=== PATIENT | male | born 1985 | race Caucasian/White ===

== ENCOUNTER 2016-12-16 15:31 | Inpatient (IN) | payer SELFPAY ==
[~2016-12-16] VITALS: Ht 185.4 cm; Wt 81.4 kg
[~2016-12-16 15:31] MED LIST: CEPH500C3 PO; LORTA5 PO
[2016-12-16 15:34] VITALS: BP 118/62; PULSE 76; RESP 16; TEMP 97.8; O2SAT 99
[2016-12-16] MEDS ORDERED: NAPR500T PO (15:52)
[2016-12-16] MEDS ORDERED: BACT800T5 PO (15:52)
[2016-12-16] MEDS ORDERED: CLIN150 PO (15:52)
[2016-12-16 16:00] VITALS: BP 116/75; PULSE 61; RESP 18; O2SAT 98
[2016-12-16] MEDS ORDERED: SODIUM CHLOR 0.9% 1000 ML INJ 1,000 ML IV SCH (16:30)
[2016-12-16] MEDS ORDERED: VANCOMYCIN INJ 1,000 MG in SODIUM CHLOR 0.9% 250 ML INJ 250 ML IV ONE (16:30)
[2016-12-16] MEDS ORDERED: MORPHINE SULFATE 4 MG/ML INJ IV PUSH ONE (16:45)
[2016-12-16] MEDS ORDERED: ONDANSETRON HCL 4 MG/2 ML VIAL IV PUSH ONE (16:45)
--- NOTE | 2016-12-16 16:47 | PD ---
HPI Chief Complaint: Skin Problem Time Seen by Provider: 16:05 Travel History International Travel<30 days: No Contact w/Intl Traveler<30days: No Traveled to known affect area: No History of Present Illness HPI 30-year-old male playing the pain swelling of the right hand, right arm and regular. Patient states that he started having infected lesion on the right fifth finger about a week and half ago. Patient was seen at [facility] in [facility] and given prescription for clindamycin and Bactrim DS. Patient states that has increased in redness swelling of the right hand with extension to the right forearm since then. Patient started having painful glands on the right axilla area for the past several days. Patient denies any fever chills. Patient denies any chest pain or shortness of breath. Patient is up-to-date with TD booster. PFSH Past Medical History Medical History: Denies Significant Hx Blood Disorders: No Cardiovascular Problems: No Diminished Hearing: No Gastrointestinal Disorders: No Genitourinary: No Immune Disorder: No Implanted Vascular Access Dvce: No Musculoskeletal: No Neurologic: No Psychiatric: No Reproductive: No Respiratory: No Thyroid Disease: No Tetanus Vaccination: Never Vaccinated Past Surgical History Abdominal Surgery: No Cardiac Surgery: No Neurologic Surgery: No Thoracic Surgery: No Other Surgery: No Social History Alcohol Use: Yes (occ) Tobacco Use: Yes (1 PPD) Substance Use: Yes (lortab on occ) Allergies-Medications (Allergen,Severity, Reaction): Coded Allergies: No Known Allergies (Verified , 12/16/16) Reported Meds & Prescriptions Reported Meds & Active Scripts Active Reported Bactrim DS (Sulfamethoxazole-Trimethoprim) 800-160 Mg Tab 1 Tab PO BID Naproxen 500 Mg Tab 500 Mg PO BID Cleocin (Clindamycin HCl) 150 Mg Cap 300 Mg PO BID Review of Systems General / Constitutional: No: Fever Eyes: No: Visual changes HENT: No: Headaches Cardiovascular: No: Chest Pain or Discomfort Respiratory: No: Shortness of Breath Gastrointestinal: No: Abdominal Pain Genitourinary: No: Dysuria Musculoskeletal: Positive: Pain Skin: No Rash Neurologic: No: Weakness Psychiatric: No: Depression Endocrine: No: Polydipsia Hematologic/Lymphatic: No: Easy Bruising Physical Exam Narrative GENERAL: Well-nourished, well-developed patient. SKIN: Warm and dry. HEAD: Normocephalic. EYES: No scleral icterus. No injection or drainage. NECK: Supple, trachea midline. No JVD or lymphadenopathy. CARDIOVASCULAR: Regular rate and rhythm without murmurs, gallops, or rubs. RESPIRATORY: Breath sounds equal bilaterally. No accessory muscle use. GASTROINTESTINAL: Abdomen soft, non-tender, nondistended. MUSCULOSKELETAL: No cyanosis, or edema. BACK: Nontender without obvious deformity. No CVA tenderness. Patient has redness swelling tenderness right fifth finger with direct extended to the ulnar aspect of the right hand to the distal right forearm. Patient has an ulcer lesion dorsal aspect of proximal and middle phalange right fifth finger. Patient has right axilla lymphadenopathy. Data Data Last Documented VS Vital Signs Date Time Temp Pulse Resp B/P Pulse Ox O2 Delivery O2 Flow Rate FiO2 12/16/16 16:00 61 18 116/75 98 Room Air 12/16/16 15:34 97.8 Orders Complete Blood Count With Diff (12/16/16 16:29) Basic Metabolic Panel (Bmp) (12/16/16 16:29) Blood Culture (12/16/16 16:29) Iv Access Insert/Monitor (12/16/16 16:29) Ecg Monitoring (12/16/16 16:29) Oximetry (12/16/16 16:29) Finger (Nio5qrc) (12/16/16 16:29) Sodium Chlor 0.9% 1000 Ml Inj (Ns 1000 M (12/16/16 16:30) Vancomycin Inj (Vancomycin Inj) (12/16/16 16:30) Morphine Inj (Morphine Inj) (12/16/16 16:45) Ondansetron Inj (Zofran Inj) (12/16/16 16:45) Consult Hand Surgery (12/16/16 ) Labs Laboratory Tests Test 12/16/16 16:55 White Blood Count 9.2 TH/MM3 Red Blood Count 4.22 MIL/MM3 Hemoglobin 12.6 GM/DL Hematocrit 36.4 % Mean Corpuscular Volume 86.2 FL Mean Corpuscular Hemoglobin 29.9 PG Mean Corpuscular Hemoglobin 34.7 % Concent Red Cell Distribution Width 13.1 % Platelet Count 144 TH/MM3 Mean Platelet Volume 7.7 FL Neutrophils (%) (Auto) 74.4 % Lymphocytes (%) (Auto) 13.1 % Monocytes (%) (Auto) 10.3 % Eosinophils (%) (Auto) 1.9 % Basophils (%) (Auto) 0.3 % Neutrophils # (Auto) 6.8 TH/MM3 Lymphocytes # (Auto) 1.2 TH/MM3 Monocytes # (Auto) 0.9 TH/MM3 Eosinophils # (Auto) 0.2 TH/MM3 Basophils # (Auto) 0.0 TH/MM3 CBC Comment DIFF FINAL Differential Comment MDM Medical Decision Making Medical Screen Exam Complete: Yes Emergency Medical Condition: Yes Differential Diagnosis Differential diagnosis including cellulitis, abscess, lymphangitis, lymphadenitis Narrative Course 30-year-old male with redness swelling tenderness right fifth finger right hand and right forearm and right axilla lymphadenopathy. Normal saline solution 1 25 cc an hour. Morphine 2 mg IV. Zofran 4 milligram IV. Vancomycin 1 g IV. I spoke with Dr. Pena, hand surgeon medical liaison. Will see patient this evening. Diagnosis Primary Impression: Abscess of finger of right hand Additional Impression: Cellulitis of right hand Admitting Information Admitting Physician Requests: Admit Brian Schmidt MD Dec 16, 2016 16:47
[2016-12-16 17:09] LABS: AUTOMATED NEUTROPHIL # 6.8 TH/MM3 (1.8-7.7); BASOPHIL % 0.3 % (0.0-2.0); EOSINOPHIL # 0.2 TH/MM3 (0-0.4); EOSINOPHIL % 1.9 % (0.0-4.0); HEMATOCRIT 36.4 % (39.0-51.0); HEMO FLAGS DIFF FINAL; LYMPH % 13.1 % (9.0-44.0); LYMPHOCYTE # 1.2 TH/MM3 (1.0-4.8); MEAN CELL VOLUME 86.2 FL (80.0-100.0); MEAN CORPUSCULAR HEMOGLOBIN 29.9 PG (27.0-34.0); MEAN CORPUSCULAR HGB CONC 34.7 % (32.0-36.0); MONO % 10.3 % (0.0-8.0); NEUT % 74.4 % (16.0-70.0); PLATELET COUNT 144 TH/MM3 (150-450); RED BLOOD COUNT 4.22 MIL/MM3 (4.50-5.90); RED CELL DISTRIBUTION WIDTH 13.1 % (11.6-17.2); WHITE BLOOD COUNT 9.2 TH/MM3 (4.0-11.0)
--- NOTE | 2016-12-16 17:09 | RADRPT ---
EXAM DATE/TIME: 12/16/2016 16:51 [facility] COMPARISON: No previous studies available for comparison. INDICATIONS : Severe fifth digit pain on the right hand. Unknown trauma. MEDICAL HISTORY : Smoker. SURGICAL HISTORY : None. ENCOUNTER: Initial ACUITY: 1 week PAIN SCORE: 10/10 LOCATION: Right middle fifth digit. FINDINGS: Examination of the fifth digit of the right hand demonstrates no evidence of fracture or dislocation. No radiopaque foreign bodies are seen. Diffuse soft tissue swelling of the. CONCLUSION: Soft tissue swelling without fracture. Thien Jameson MD on December 16, 2016 at 17:07 Board Certified Radiologist. This report was verified electronically.
[2016-12-16] MEDS ORDERED: SODIUM CHLOR 0.45% 1000 ML INJ 1,000 ML IV SCH (17:18)
[2016-12-16 17:28] LABS: BICARBONATE 25.5 MEQ/L (21.0-32.0); POTASSIUM 4.3 MEQ/L (3.5-5.1)
[2016-12-16] MEDS ORDERED: ONDANSETRON HCL 4 MG/2 ML VIAL IVP PRN (17:30)
[2016-12-16] MEDS ORDERED: ACETAMINOPHEN 325 MG TAB PO PRN (17:30)
[2016-12-16] MEDS ORDERED: ACETAMINOPHEN/HYDROcodone 325 MG/5 MG TAB PO PRN (17:30)
[2016-12-16 17:45] VITALS: O2SAT 98
[2016-12-16 17:47] VITALS: BP 108/58; PULSE 57; RESP 20; O2SAT 100
--- NOTE | 2016-12-16 19:14 | HHI.HP ---
[facility] [place] [facility] No Primary Care Physician Admission Diagnosis right fifth finger abscess and cellulitis Diagnoses: Chief Complaint: Left hand and arm tenderness swelling and redness Travel History International Travel<30 Days: No Contact w/Intl Traveler <30 Da: No Traveled to Known Affected Are: No History of Present Illness 30 years old male who climbed trees who came to ED complaining of worsening right hand and arm erythema and swelling and pain in the right fifth finger, patient went to [facility] in [facility] and was given prescription for clindamycin and Bactrim DS but it didn't help. The swelling continued to increase along with the tenderness patient start feeling lymph node in his right armpit and in his antecubital area. Patient not sure if he got insect right in his hand, but he reported being poked with pineapple leafs that is hard in the antecubital area. Patient reported extreme pain 12 out of 10 in his words improved to 9 out of 10 after his given pain medication in ED, he denied fever or chills chest pain or short of breath abdominal pain diarrhea constipation. He is up-to-date on TD booster Review of Systems All 10 systems reviewed and was positive for what is mentioned in history of present illness otherwise negative Past Family Social History Past Medical History Denied any previous past medical history Past Surgical History No previous surgeries Allergies: Coded Allergies: No Known Allergies (Verified , 12/16/16) Family History No significant medical problem runs in his family mother father or siblings Social History He does smoke since the age of 13 , 1 pack per day, he is the marijuana but he haven't done that in a long time, occasional alcohol use Physical Exam Vital Signs Vital Signs Date Time Temp Pulse Resp B/P Pulse Ox O2 Delivery O2 Flow Rate FiO2 12/16/16 17:47 57 20 108/58 100 Room Air 12/16/16 17:45 98 Room Air 12/16/16 16:00 61 18 116/75 98 Room Air 12/16/16 15:34 97.8 76 16 118/62 99 Physical Exam GENERAL: This is a well-nourished, well-developed patient, in no apparent distress. SKIN: Significant erythema and swelling with tenderness in the right fifth finger with also induration and tenderness in the right forearm positive lymph node in the antecubital area and in the right right axilla HEAD: Atraumatic. Normocephalic. No temporal or scalp tenderness. EYES: Pupils equal round and reactive. Extraocular motions intact. No scleral icterus. No injection or drainage. ENT: Nose without bleeding, purulent drainage or septal hematoma. Throat without erythema, tonsillar hypertrophy or exudate. Uvula midline. Airway patent. NECK: Trachea midline. No JVD or lymphadenopathy. Supple, nontender, no meningeal signs. CARDIOVASCULAR: Regular rate and rhythm without murmurs, gallops, or rubs. RESPIRATORY: Clear to auscultation. Breath sounds equal bilaterally. No wheezes , rales, or rhonchi. GASTROINTESTINAL: Abdomen soft, non-tender, nondistended. No hepato-splenomegaly , or palpable masses. No guarding. MUSCULOSKELETAL: Extremities without clubbing, cyanosis, or edema. No joint tenderness, effusion, or edema noted. No calf tenderness. Negative Homans sign bilaterally., Right upper extremity as prescribed above NEUROLOGICAL: Awake and alert. Cranial nerves II through XII intact. Motor and sensory grossly within normal limits. Five out of 5 muscle strength in all muscle groups. Normal speech. Laboratory Laboratory Tests Test 12/16/16 16:55 White Blood Count 9.2 Red Blood Count 4.22 Hemoglobin 12.6 Hematocrit 36.4 Mean Corpuscular Volume 86.2 Mean Corpuscular Hemoglobin 29.9 Mean Corpuscular Hemoglobin 34.7 Concent Red Cell Distribution Width 13.1 Platelet Count 144 Mean Platelet Volume 7.7 Neutrophils (%) (Auto) 74.4 Lymphocytes (%) (Auto) 13.1 Monocytes (%) (Auto) 10.3 Eosinophils (%) (Auto) 1.9 Basophils (%) (Auto) 0.3 Neutrophils # (Auto) 6.8 Lymphocytes # (Auto) 1.2 Monocytes # (Auto) 0.9 Eosinophils # (Auto) 0.2 Basophils # (Auto) 0.0 CBC Comment DIFF FINAL Differential Comment Sodium Level 139 Potassium Level 4.3 Chloride Level 107 Carbon Dioxide Level 25.5 Anion Gap 7 Blood Urea Nitrogen 14 Creatinine 0.98 Estimat Glomerular Filtration 89 Rate Random Glucose 94 Calcium Level 8.5 Date/Time Procedure Status Source Growth 12/16/16 16:55 Aerobic Blood Culture Received Blood Peripheral Pending 12/16/16 16:55 Anaerobic Blood Culture Received Blood Peripheral Pending Result Diagram: 12/16/16 1655 12/16/16 1655 Imaging Last Impressions Finger X-Ray 12/16/16 1629 Signed Impressions: Service Date/Time: Friday, December 16, 2016 16:51 - CONCLUSION: Soft tissue swelling without fracture. 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/ abscess extended to the right forearm antecubital area and positive lymph node in the right axilla along with severe pain, failed outpatient therapy with clindamycin and Bactrimpo, We'll admit patient for iv vancomycin, central blood culture, CBC BMP, pain medication with [place] prn, morphine for breakthrough, he was given morphine in ED Consult hand surgery, he will see patient this evening possible OR either tonight or tomorrow for I&D Consider ID consultation if needed Adjust antibiotics according to cultures DVT prophylaxis with ambulation Discussed Condition With Patient in a physician Physician Certification 2 Midnight Certification Type: Admission for Inpatient Services Order for Inpatient Services The services are ordered in accordance with Medicare regulations or non- Medicare payer requirements, as applicable. In the case of services not specified as inpatient-only, they are appropriately provided as inpatient services in accordance with the 2-midnight benchmark. Estimated LOS (days): 2 days is the estimated time the patient will need to remain in the hospital, assuming treatment plan goals are met and no additional complications. Post-Hospital Plan: Home Tobias Wong MD Dec 16, 2016 19:14
[2016-12-16] MEDS: MORPHINE SULFATE 4 MG/ML INJ IV PRN ×2 (19:37→23:25)
[2016-12-16] MEDS: LACTATED RINGER'S 1000 ML INJ 1,000 ML IV SCH ×2 (19:37→23:00)
--- NOTE | 2016-12-16 21:02 | MB ---
cc: ILANA VARELA III, M.D. DATE OF CONSULTATION: 12/16/2016 REASON FOR CONSULTATION: HISTORY OF PRESENT ILLNESS: The patient is a 30-year-old right hand dominant male who has developed an infection in his right fifth finger about a week ago. Three days ago he went to another hospital and was given clindamycin and Bactrim to take by mouth but it became worse. He went and had an IV dose of vancomycin there last night. He presents to the emergency room here today with a significant infection as well as lymphangitis and epitrochlear and axillary adenopathy of the right arm. PAST MEDICAL HISTORY Denied. PAST SURGICAL HISTORY Stitches only but no operation. SOCIAL HISTORY The patient smokes one pack per day. Occasional alcohol use. ALLERGIES NO KNOWN DRUG ALLERGIES. MEDICATIONS Bactrim and clindamycin. FAMILY HISTORY: Noncontributory to this injury or hospitalization. REVIEW OF SYSTEMS The patient is not complaining of any headaches, blurry or double vision. He is not complaining of any coughing, wheezing, shortness of breath. He is not complaining of any chest pain or palpitations. He is not complaining of any nausea, vomiting or abdominal pain. He is not complaining of any spine, neck or back pain. He is not complaining of any skin lesions, rashes, eruptions on the skin with the exception of his right arm. He is not complaining of any night sweats, fevers or chills. He is not complaining of any anxiety, depression or suicidal ideation. He is not complaining of any polyphagia, polydipsia. X-RAYS: X-rays of the right finger performed in the hospital today revealed no fractures, foreign body or dislocations but do reveal soft tissue swelling. PHYSICAL EXAMINATION: He is well-developed, well-nourished in no apparent distress, resting comfortably in his bed. VITAL SIGNS: Temperature is 97.8, heart rate 57, respiratory rate 20, blood pressure 108/58, pulse oximetry is 100% on room air. LABORATORY STUDIES: Reveal a white blood cell count 9.2 thousand, H&H 12.6 and 36.4, platelet count of 144,000. Chemistries: All within normal limits. BUN and creatinine is 14 and 0.98. He is well-nourished, comfortable in his bed, holding his right hand up in the air. The right fifth finger has an obvious large cellulitic area with an abscess and central necrotic area on the dorsal aspect over the proximal phalanx. He is neurovascularly intact throughout. Capillary refill is less than 2 seconds in all fingertips. There is suggestion of lymphangitic streaking across his wrist. He does have palpable epitrochlear lymph nodes that are tender. No palpable axillary lymph nodes. He is awake, alert and oriented x3. He is very pleasant. IMPRESSION Right fifth finger infection with abscess, cellulitis and adenopathy. PLAN: The plan is to go to the operating room tonight for incision and drainage. The patient will then be admitted for IV antibiotics, dressing changes and strict elevation of his hand. He understands and agrees. We have discussed this with the patient and his mother and they request that we proceed. MD LYNETTE Wilhelm III/HEAVEN /7:08 PM /8:51 PM
[2016-12-16] MEDS ORDERED: LIDOCAINE HCL 2% 20 ML VIAL INFIL STA (21:21)
[2016-12-16] MEDS: ACETAMINOPHEN/HYDROcodone 325 MG/7.5 MG TAB PO PRN (21:27)
[2016-12-16] MEDS ORDERED: MORPHINE SULFATE 8 MG/ML INJ IV PUSH ONE (21:45)
--- NOTE | 2016-12-16 21:56 | HHI.PR ---
Immediate Post Op Note Procedure Date: Dec 16, 2016 Pre Op Diagnosis: (1) Abscess of finger of right hand (2) Cellulitis of right hand Post Op Diagnosis: Surgeon: Giuliano Pena III Inspector Final Assembly Conveyor Line(s): 0 Procedure: incision and drainage of right 5th finger Specimen(s) removed: culture drainage right 5th finger Anesthesia: Local Drains: None Patient to: Other (in hospital room) Patient Condition: Good Giuliano Pena III, MD Dec 16, 2016 21:56
[2016-12-16] MEDS ORDERED: Vancomycin Consult Pharmacy 1 EA OTHER SCH (23:00)
[2016-12-16] MEDS: CIPROFLOXACIN 400 MG PREMIX 200 ML IV SCH (23:21)
[2016-12-17] VITALS: BP 126/80; PULSE 94; RESP 20; TEMP 98.8; O2SAT 98
[2016-12-17] MEDS: VANCOMYCIN 1,500 MG/NS 500 ML IV SCH ×6 (00:41→22:41)
[2016-12-17] MEDS: NICOTINE 21 MG/24 HR PATCH TD SCH ×2 (00:41→08:59)
[2016-12-17] MEDS: ACETAMINOPHEN/HYDROcodone 325 MG/7.5 MG TAB PO PRN ×6 (01:51→22:41)
[2016-12-17] MEDS: LACTATED RINGER'S 1000 ML INJ 1,000 ML IV SCH ×6 (03:00→22:42)
[2016-12-17] MEDS: MORPHINE SULFATE 4 MG/ML INJ IV PRN ×6 (03:01→23:42)
[2016-12-17 06:07] LABS: AUTOMATED NEUTROPHIL # 6.7 TH/MM3 (1.8-7.7); BASOPHIL % 0.3 % (0.0-2.0); EOSINOPHIL # 0.2 TH/MM3 (0-0.4); EOSINOPHIL % 1.9 % (0.0-4.0); HEMATOCRIT 33.8 % (39.0-51.0); HEMO FLAGS DIFF FINAL; LYMPH % 13.8 % (9.0-44.0); LYMPHOCYTE # 1.3 TH/MM3 (1.0-4.8); MEAN CORPUSCULAR HEMOGLOBIN 30.3 PG (27.0-34.0); MEAN CORPUSCULAR HGB CONC 35.3 % (32.0-36.0); PLATELET COUNT 134 TH/MM3 (150-450); RED BLOOD COUNT 3.93 MIL/MM3 (4.50-5.90); RED CELL DISTRIBUTION WIDTH 13.3 % (11.6-17.2); WHITE BLOOD COUNT 9.2 TH/MM3 (4.0-11.0)
[2016-12-17 06:32] LABS: BICARBONATE 25.5 MEQ/L (21.0-32.0)
[2016-12-17 08:00] VITALS: BP 99/52; PULSE 67; RESP 18; TEMP 98; O2SAT 98
[2016-12-17] MEDS ORDERED: MORPHINE SULFATE 4 MG/ML INJ IV PUSH ONE (08:00)
--- NOTE | 2016-12-17 08:26 | MP ---
cc: GIULIANO PENA III, M.D. DATE OF SURGERY 12/16/2016 PROCEDURE Right fifth finger incision and drainage. SURGEON Giuliano Pena III, MD PROCEDURE The patient was made comfortable in his bed in his hospital room with his mother in the room as well as the nurse. After the correct site and side of the surgery were verified by members of each team in the room including the patient and after adequate preoperative time-out was performed, the right hand was prepped and draped in the traditional sterile fashion. 2% plain lidocaine was used to obtain local anesthesia. A longitudinal incision was made overlying the most fluctuant portion of the finger in a longitudinal fashion dorsally, 2 cm in length. An eruption of pus was obtained and this was sampled and passed off the field as a specimen. The wound was then probed and found to be 2 cm in length and did not leave the finger. There were no other loculations. There was no necrotic tissue on the inside of the wound. It was thoroughly cleansed and then packed using 1/4-inch Iodoform packing. Capillary refill was less than 2 seconds and to the tip of the finger the entire time. A bulky, soft sterile dressing was applied. The patient tolerated the procedure well. MD LYNETTE Wilhelm III/RAJEEV /10:37 PM /8:11 AM
[2016-12-17] MEDS: CIPROFLOXACIN 400 MG PREMIX 200 ML IV SCH ×2 (10:15→22:41)
--- NOTE | 2016-12-17 11:18 | HHI.PR ---
Subjective Remarks Laying in bed reported he feels less pressure in his right hand and he is able to slightly bend his fingers No fever or chills, wound fluid culture still pending we'll continue on vancomycin for now Objective Vitals Vital Signs Date Time Temp Pulse Resp B/P Pulse Ox O2 Delivery O2 Flow Rate FiO2 12/17/16 08:00 98.0 67 18 99/52 98 12/17/16 00:00 98.8 94 20 126/80 98 12/16/16 17:47 57 20 108/58 100 Room Air 12/16/16 17:45 98 Room Air 12/16/16 16:00 61 18 116/75 98 Room Air 12/16/16 15:34 97.8 76 16 118/62 99 I/O 12/16/16 12/16/16 12/16/16 12/17/16 12/17/16 12/17/16 07:00 15:00 23:00 07:00 15:00 23:00 Intake Total 0 ml 1520 ml Output Total 350 ml 850 ml Balance -350 ml 670 ml Intake Oral 0 ml 720 ml IV Total 800 ml Output Urine Total 350 ml 850 ml # Bowel Movements 0 0 Result Diagram: 12/17/16 0532 12/17/16 0532 Objective Remarks GENERAL: This is a well-nourished, well-developed patient, in no apparent distress. SKIN: Significant erythema and swelling with tenderness in the right fifth finger with also induration and tenderness in the right forearm positive lymph node in the antecubital area and in the right right axilla HEAD: Atraumatic. Normocephalic. No temporal or scalp tenderness. EYES: Pupils equal round and reactive. Extraocular motions intact. No scleral icterus. No injection or drainage. ENT: Nose without bleeding, purulent drainage or septal hematoma. Throat without erythema, tonsillar hypertrophy or exudate. Uvula midline. Airway patent. NECK: Trachea midline. No JVD or lymphadenopathy. Supple, nontender, no meningeal signs. CARDIOVASCULAR: Regular rate and rhythm without murmurs, gallops, or rubs. RESPIRATORY: Clear to auscultation. Breath sounds equal bilaterally. No wheezes , rales, or rhonchi. GASTROINTESTINAL: Abdomen soft, non-tender, nondistended. No hepato-splenomegaly , or palpable masses. No guarding. MUSCULOSKELETAL: Extremities without clubbing, cyanosis, or edema. No joint tenderness, effusion, or edema noted. No calf tenderness. Negative Homans sign bilaterally., Right upper extremity as prescribed above NEUROLOGICAL: Awake and alert. Cranial nerves II through XII intact. Motor and sensory grossly within normal limits. Five out of 5 muscle strength in all muscle groups. Normal speech. 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 Pena help, Continue iv vancomycin, follow blood culture, and wound culture, CBC BMP, pain medication with [place] prn , morphine for breakthrough Consider ID consultation if needed Adjust antibiotics according to cultures DVT prophylaxis with ambulation Tobias Wong MD Dec 17, 2016 11:18
[2016-12-17 12:00] VITALS: BP 109/55; PULSE 70; RESP 18; TEMP 98.5; O2SAT 94
--- NOTE | 2016-12-17 13:34 | HHI.PR ---
Subjective Remarks pain controlled, can't sleep though Objective Vital Signs Date Time Temp Pulse Resp B/P Pulse Ox O2 Delivery O2 Flow Rate FiO2 12/17/16 12:00 98.5 70 18 109/55 94 12/17/16 08:00 98.0 67 18 99/52 98 12/17/16 00:00 98.8 94 20 126/80 98 12/16/16 17:47 57 20 108/58 100 Room Air 12/16/16 17:45 98 Room Air 12/16/16 16:00 61 18 116/75 98 Room Air 12/16/16 15:34 97.8 76 16 118/62 99 I/O 12/16/16 12/16/16 12/16/16 12/17/16 12/17/16 12/17/16 07:00 15:00 23:00 07:00 15:00 23:00 Intake Total 0 ml 1520 ml Output Total 350 ml 850 ml Balance -350 ml 670 ml Intake Oral 0 ml 720 ml IV Total 800 ml Output Urine Total 350 ml 850 ml # Bowel Movements 0 0 Result Diagram: 12/17/16 0532 12/17/16 0532 Other Results gram stain results in, culture pending Objective Remarks right 5th finger S/P/W, CR<2 sec gum rolling machine tender as expected AA x O x 3 in NAD ambulating easily Assessment and Plan Problem List: (1) Abscess of finger of right hand Status: Acute Plan: continue IV abx continue packing changes strict elevation add ambien prn at night (2) Cellulitis of right hand Status: Acute Giuliano Pena III, MD Dec 17, 2016 13:34
[2016-12-17 16:00] VITALS: BP 103/65; PULSE 69; RESP 18; TEMP 98.1; O2SAT 98
[2016-12-17 20:00] VITALS: BP 118/57; PULSE 66; RESP 18; TEMP 97.7; O2SAT 98
[2016-12-18] VITALS: BP_SYST 133; BP_SYST 161; BP_DIAS 68; BP_DIAS 75; PULSE 74; PULSE 77; RESP 16; RESP 20; TEMP 98.7; O2SAT 97
[2016-12-18] MEDS: MORPHINE SULFATE 4 MG/ML INJ IV PRN ×3 (02:51→10:51)
[2016-12-18] MEDS: LACTATED RINGER'S 1000 ML INJ 1,000 ML IV SCH ×6 (03:00→23:00)
[2016-12-18] MEDS: ACETAMINOPHEN/HYDROcodone 325 MG/7.5 MG TAB PO PRN ×5 (03:50→21:06)
[2016-12-18] MEDS: ZOLPIDEM TARTRATE 10 MG TAB PO PRN ×2 (03:54→23:18)
[2016-12-18 08:00] VITALS: BP 117/56; PULSE 57; RESP 18; TEMP 97.4; O2SAT 97
[2016-12-18] MEDS: NICOTINE 21 MG/24 HR PATCH TD SCH (08:49)
[2016-12-18] MEDS ORDERED: LIDOCAINE HCL 2% 20 ML VIAL INFIL STA (10:35)
[2016-12-18] MEDS ORDERED: LIDOCAINE HCL 1% 50 ML VIAL ONE (10:43)
--- NOTE | 2016-12-18 10:47 | HHI.PR ---
Subjective Remarks pt does not have his hand elevated at all and says he did his own wound care; hand/finger have purulent drainage and are swollen; he added to the wrap and made it much too tight Objective Vital Signs Date Time Temp Pulse Resp B/P Pulse Ox O2 Delivery O2 Flow Rate FiO2 12/18/16 08:00 97.4 57 18 117/56 97 12/18/16 04:30 16 12/18/16 02:56 16 12/18/16 00:00 98.7 74 16 133/68 97 12/17/16 20:00 97.7 66 18 118/57 98 12/17/16 16:00 98.1 69 18 103/65 98 12/17/16 12:00 98.5 70 18 109/55 94 I/O 12/17/16 12/17/16 12/17/16 12/18/16 12/18/16 12/18/16 07:00 15:00 23:00 07:00 15:00 23:00 Intake Total 1520 ml 1681 ml 420 ml 360 ml 1300 ml Output Total 850 ml 500 ml Balance 670 ml 1181 ml 420 ml 360 ml 1300 ml Intake Oral 720 ml 360 ml 420 ml 360 ml IV Total 800 ml 1321 ml 1300 ml Output Urine Total 850 ml 500 ml # Voids 3 # Bowel Movements 0 0 0 Result Diagram: 12/17/1632 12/17/16 0532 Procedures repeat I & D of right hand and small finger done at bedside with 2% plain lidocaine cultures obtained pt tolerated procedure well; nurse at bedside for entire procedure 10/29 " packing applied; dsg applied manager technology in room to readdress sling elevation Objective Remarks right 5th finger S/P/W, CR<2 sec felt dyeing machine tender as expected AA x O x 3 in NAD ambulating easily Assessment and Plan Problem List: (1) Abscess of finger of right hand Status: Acute Plan: continue IV abx continue packing changes, but now Q6 hours add anti-inflammatory strict elevation pt not to do his own wound care STRICT ELEVATION OF THE RIGHT HAND; chemical radiation technician to readdress sling (2) Cellulitis of right hand Status: Acute Giuliano Pena III, MD Dec 18, 2016 10:46
[2016-12-18] MEDS ORDERED: IBUPROFEN 800 MG TAB PO PRN (11:30)
[2016-12-18] MEDS ORDERED: PHARMACY ORDERED LAB XX ONE (11:45)
[2016-12-18 12:00] VITALS: BP 120/68; PULSE 98; RESP 18; TEMP 95.8; O2SAT 92
--- NOTE | 2016-12-18 12:29 | HHI.PR ---
Subjective Remarks Laying in bed with the right arm and ortho sling to keep elevated as recommended by Dr. Pena hand surgeon Pain is not holding for 4 hours on the morphine he asked increased frequency Afebrile overnight, culture came back positive for MRSA Continue on iv vancomycin, and IVC provided by hand surgeon, continue following cultures, packing in dressing changes by his surgeon only Objective Vitals Vital Signs Date Time Temp Pulse Resp B/P Pulse Ox O2 Delivery O2 Flow Rate FiO2 12/18/16 08:00 97.4 57 18 117/56 97 12/18/16 04:30 16 12/18/16 02:56 16 12/18/16 00:00 98.7 74 16 133/68 97 12/17/16 20:00 97.7 66 18 118/57 98 12/17/16 16:00 98.1 69 18 103/65 98 I/O 12/17/16 12/17/16 12/17/16 12/18/16 12/18/16 12/18/16 07:00 15:00 23:00 07:00 15:00 23:00 Intake Total 1520 ml 1681 ml 420 ml 360 ml 1300 ml Output Total 850 ml 500 ml Balance 670 ml 1181 ml 420 ml 360 ml 1300 ml Intake Oral 720 ml 360 ml 420 ml 360 ml IV Total 800 ml 1321 ml 1300 ml Output Urine Total 850 ml 500 ml # Voids 3 # Bowel Movements 0 0 0 Result Diagram: 12/17/16 0532 12/17/16 0532 Other Results Microbiology Date/Time Procedure Status Source Growth 12/16/16 22:30 Gram Stain - Final Resulted Abscess Finger 12/16/16 22:30 Wound Culture - Preliminary Resulted S. Aureus Mrsa 12/16/16 16:55 Aerobic Blood Culture - Preliminary Resulted Blood Peripheral NO GROWTH IN 2 DAYS 12/16/16 16:55 Anaerobic Blood Culture - Preliminary Resulted Blood Peripheral NO GROWTH IN 2 DAYS Imaging Last Impressions Finger X-Ray 12/16/16 1629 Signed Impressions: Service Date/Time: Friday, December 16, 2016 16:51 - CONCLUSION: Soft tissue swelling without fracture. Thien Jameson MD Objective Remarks GENERAL: This is a well-nourished, well-developed patient, in no apparent distress. SKIN: Right arm in sling today HEAD: Atraumatic. Normocephalic. No temporal or scalp tenderness. EYES: Pupils equal round and reactive. Extraocular motions intact. No scleral icterus. No injection or drainage. ENT: Nose without bleeding, purulent drainage or septal hematoma. Throat without erythema, tonsillar hypertrophy or exudate. Uvula midline. Airway patent. NECK: Trachea midline. No JVD or lymphadenopathy. Supple, nontender, no meningeal signs. CARDIOVASCULAR: Regular rate and rhythm without murmurs, gallops, or rubs. RESPIRATORY: Clear to auscultation. Breath sounds equal bilaterally. No wheezes , rales, or rhonchi. GASTROINTESTINAL: Abdomen soft, non-tender, nondistended. No hepato-splenomegaly , or palpable masses. No guarding. MUSCULOSKELETAL: Extremities without clubbing, cyanosis, or edema. No joint tenderness, effusion, or edema noted. No calf tenderness. Negative Homans sign bilaterally., Right upper extremity in sling NEUROLOGICAL: Awake and alert. Cranial nerves II through XII intact. Motor and sensory grossly within normal limits. Five out of 5 muscle strength in all muscle groups. Normal speech. 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 Pena help, Continue iv vancomycin, and IV Cipro, follow blood culture, wound culture grew MRSA, CBC BMP, pain medication with [place] prn, change morphine to Dilaudid for breakthrough Consider ID consultation Adjust antibiotics according to cultures DVT prophylaxis with ambulation Tobias Wong MD Dec 18, 2016 12:29
[2016-12-18] MEDS ORDERED: HYDROmorphone HCL PF 1 MG/ML VIAL IV PUSH PRN (12:30)
[2016-12-18] MEDS: CIPROFLOXACIN 400 MG PREMIX 200 ML IV SCH ×2 (12:57→22:59)
[2016-12-18] MEDS: VANCOMYCIN 1,500 MG/NS 500 ML IV SCH ×4 (12:58→22:59)
--- NOTE | 2016-12-18 13:40 | MP ---
cc: GIULIANO PENA III, M.D. DATE OF SURGERY: 12/18/2016 PREOPERATIVE DIAGNOSIS Right small finger and hand abscess and cellulitis. PROCEDURE Right fifth finger and hand incision and drainage. SURGEON Giuliano Pena III, MD INDICATION The patient had been doing his own wound care and not elevating his hand and he had a return of the abscess and slightly worsening, therefore a bedside extension of his incision and drainage and debridement was performed. The patient provided informed verbal consent. PROCEDURE 2% plain lidocaine was used for local anesthetic. The incision in his finger was extended 3 cm proximally onto his hand overlying the cavity. There was no gross purulence proximal to it. The entire cavity was then thoroughly scrubbed with Iodinated saline solution. There was no further gross purulence. Cultures were obtained. There was no further extension distally in the finger. Capillary refill remained 2 seconds in the fingertip at all times. It was then lightly packed with one-quarter inch Iodoform packing and then a bulky soft dressing. The patient tolerated the procedure well. The nurse was in the room for the entire procedure at the bedside. MD LYNETTE Wilhelm III/REJI /11:20 AM /1:20 PM
[2016-12-18] MEDS: HYDROmorphone HCL PF 1 MG/ML VIAL IV PUSH PRN ×3 (14:09→22:59)
[2016-12-18 16:00] VITALS: BP 113/69; PULSE 60; RESP 19; TEMP 97.8; O2SAT 96
[2016-12-18 20:00] VITALS: BP 111/55; PULSE 62; RESP 20; TEMP 96.2; O2SAT 96
[2016-12-19] VITALS: BP 112/55; PULSE 60; RESP 20; TEMP 96.3; O2SAT 98
[2016-12-19] MEDS: ACETAMINOPHEN/HYDROcodone 325 MG/7.5 MG TAB PO PRN ×5 (01:12→23:21)
[2016-12-19] MEDS: HYDROmorphone HCL PF 1 MG/ML VIAL IV PUSH PRN ×3 (02:08→09:11)
[2016-12-19] MEDS: LACTATED RINGER'S 1000 ML INJ 1,000 ML IV SCH ×6 (03:00→23:00)
[2016-12-19 08:00] VITALS: BP 104/51; PULSE 71; RESP 20; TEMP 97.9; O2SAT 96
[2016-12-19] MEDS: NICOTINE 21 MG/24 HR PATCH TD SCH (09:12)
--- NOTE | 2016-12-19 09:25 | HHI.PR ---
Subjective Remarks He actually has his hand elevated sling thinks his hand is feeling better Objective Vital Signs Date Time Temp Pulse Resp B/P Pulse Ox O2 Delivery O2 Flow Rate FiO2 12/19/16 08:00 97.9 71 20 104/51 96 12/19/16 05:33 16 12/19/16 00:00 96.3 60 20 112/55 98 12/18/16 22:06 16 12/18/16 20:00 96.2 62 20 111/55 96 12/18/16 16:00 97.8 60 19 113/69 96 12/18/16 12:00 95.8 98 18 120/68 92 I/O 12/18/16 12/18/16 12/18/16 12/19/16 12/19/16 12/19/16 07:00 15:00 23:00 07:00 15:00 23:00 Intake Total 360 ml 2145 ml 480 ml 2583 ml Balance 360 ml 2145 ml 480 ml 2583 ml Intake Oral 360 ml 845 ml 480 ml 480 ml IV Total 1300 ml 2103 ml # Voids 3 2 2 3 # Bowel Movements 0 0 0 0 Result Diagram: 12/17/16 0532 12/19/16 0431 Other Results MRSA growing the cultures Objective Remarks right 5th finger S/P/W, CR<2 sec The right fifth finger and hands are actually improved. Noticeably less edema and the erythema is fading. Wound bed is clean and there is no further purulence AA x O x 3 in NAD ambulating easily Assessment and Plan Problem List: (1) Abscess of finger of right hand Status: Acute Plan: continue IV abx continue packing changes, Q6 hours add anti-inflammatory stop Dilaudid as soon as possible strict elevation pt not to do his own wound care STRICT ELEVATION OF THE RIGHT HAND I will be out of town the for the next 48 hours, Dr. Sheehan covering in my absence (2) Cellulitis of right hand Status: Acute Giuliano Pena III, MD Dec 19, 2016 09:25
[2016-12-19] MEDS: CIPROFLOXACIN 400 MG PREMIX 200 ML IV SCH (10:50)
[2016-12-19 12:00] VITALS: BP 105/59; PULSE 53; RESP 19; TEMP 97.2; O2SAT 96
[2016-12-19] MEDS ORDERED: HYDROmorphone HCL PF 1 MG/ML VIAL IV PUSH PRN (12:30)
[2016-12-19] MEDS: VANCOMYCIN 1,500 MG/NS 500 ML IV SCH ×2 (13:19)
[2016-12-19 16:00] VITALS: BP 111/63; PULSE 55; RESP 19; TEMP 97; O2SAT 96
--- NOTE | 2016-12-19 17:23 | HHI.PR ---
Subjective Remarks Follow up on right hand abscess Patient sitting in bed no acute issue, I discussed with him and explain we need to back off on his Dilaudid as per hand surgery recommendation I changed the dose to half milligram every 6 hours for only 3 more doses Patient is afebrile, Dr. Pena will be out of town, continue iv antibiotic monitor culture, consult ID if needed, Dr. Sheehan to cover as needed Objective Vitals Vital Signs Date Time Temp Pulse Resp B/P Pulse Ox O2 Delivery O2 Flow Rate FiO2 12/19/16 16:00 97.0 55 19 111/63 96 12/19/16 12:00 97.2 53 19 105/59 96 12/19/16 09:41 16 12/19/16 08:00 97.9 71 20 104/51 96 12/19/16 00:00 96.3 60 20 112/55 98 12/18/16 22:06 16 12/18/16 20:00 96.2 62 20 111/55 96 I/O 12/18/16 12/18/16 12/18/16 12/19/16 12/19/16 12/19/16 07:00 15:00 23:00 07:00 15:00 23:00 Intake Total 360 ml 2145 ml 480 ml 2583 ml 960 ml Output Total 800 ml Balance 360 ml 2145 ml 480 ml 2583 ml 160 ml Intake Oral 360 ml 845 ml 480 ml 480 ml 960 ml IV Total 1300 ml 2103 ml Output Urine Total 800 ml # Voids 3 2 2 3 # Bowel Movements 0 0 0 0 1 Result Diagram: 12/17/16 0532 12/19/16 0431 Objective Remarks GENERAL: This is a well-nourished, well-developed patient, in no apparent distress. SKIN: Right arm in sling today HEAD: Atraumatic. Normocephalic. No temporal or scalp tenderness. EYES: Pupils equal round and reactive. Extraocular motions intact. No scleral icterus. No injection or drainage. ENT: Nose without bleeding, purulent drainage or septal hematoma. Throat without erythema, tonsillar hypertrophy or exudate. Uvula midline. Airway patent. NECK: Trachea midline. No JVD or lymphadenopathy. Supple, nontender, no meningeal signs. CARDIOVASCULAR: Regular rate and rhythm without murmurs, gallops, or rubs. RESPIRATORY: Clear to auscultation. Breath sounds equal bilaterally. No wheezes , rales, or rhonchi. GASTROINTESTINAL: Abdomen soft, non-tender, nondistended. No hepato-splenomegaly , or palpable masses. No guarding. MUSCULOSKELETAL: Extremities without clubbing, cyanosis, or edema. No joint tenderness, effusion, or edema noted. No calf tenderness. Negative Homans sign bilaterally., Right upper extremity in sling NEUROLOGICAL: Awake and alert. Cranial nerves II through XII intact. Motor and sensory grossly within normal limits. Five out of 5 muscle strength in all muscle groups. Normal speech. 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 Pena help, Continue iv vancomycin, and IV Cipro, follow blood culture, wound culture grew MRSA, CBC BMP, pain medication with [place] prn,I changed the dose of Dilaudid to half milligram every 6 hours for only [address] Pena will be out of town, continue iv antibiotic monitor culture, consult ID if needed, Dr. Sheehan to cover as needed Consider ID consultation Adjust antibiotics according to cultures DVT prophylaxis with ambulation Tobias Wong MD Dec 19, 2016 17:23
--- NOTE | 2016-12-19 19:25 | PD.ID.CON ---
History of Present Illness Service ID Consult Requested By Dr Larose Reason for Consult MRSA abscess finger, hand Primary Care Physician No Primary Care Physician Diagnoses: History of Present Illness 30 years old male who climbed trees presented few bertin ago complaining of worsening right hand and arm erythema and swelling and pain in the right fifth finger, patient initially went to [facility] in [facility] and was given prescription for clindamycin and Bactrim DS without improvement . The swelling continued to increase along with the tenderness patient start feeling lymph node in his right armpit and in his antecubital area. He has no fever He was seen by Dr Pena who operated on him twice with I+D of R hand and R small finger Both clx positive for MRSA Review of Systems Except as stated in HPI: all other systems reviewed are Neg Past Family Social History Allergies: Coded Allergies: *MDRO Multi-Drug Resistant Organism (Verified Adverse Reaction, Unknown, ) MRSA (finger)-12/16/16 Past Medical History Denied any previous past medical history Past Surgical History No previous surgeries Active Ordered Medications Medications where reviewed in EMR Antibiotics Include: aracely clemente Family History No significant medical problem runs in his family mother father or siblings Social History He does smoke since the age of 13 , 1 pack per day, he is the marijuana but he haven't done that in a long time, occasional alcohol use Physical Exam Vital Signs Vital Signs Date Time Temp Pulse Resp B/P Pulse Ox O2 Delivery O2 Flow Rate FiO2 12/19/16 16:00 97.0 55 19 111/63 96 12/19/16 12:00 97.2 53 19 105/59 96 12/19/16 09:41 16 12/19/16 08:00 97.9 71 20 104/51 96 12/19/16 00:00 96.3 60 20 112/55 98 12/18/16 22:06 16 12/18/16 20:00 96.2 62 20 111/55 96 Physical Exam CONSTITUTIONAL/GENERAL: This is an adequately nourished patient, in no apparent distress. TUBES/LINES/DRAINS: SKIN: No jaundice, rashes, or lesions. Skin temperature appropriate. Not diaphoretic. HEAD: Atraumatic. Normocephalic. EYES: Pupils equal and round and reactive. Extraocular motions intact. No scleral icterus. No injection or drainage. Fundi not examined. ENT: Hearing grossly normal. Nose without bleeding or purulent drainage. Oral mucosae without visible erythema, exudates, masses, or lesions. NECK: Trachea midline. Supple, nontender. . CARDIOVASCULAR: Regular rate and rhythm without murmurs, gallops, or rubs. No JVD. Peripheral pulses symmetric. RESPIRATORY/CHEST: Symmetric, unlabored respirations. Clear to auscultation. Breath sounds equal bilaterally. No wheezes, rales, or rhonchi. GASTROINTESTINAL: Abdomen soft, non-tender, nondistended. No hepato-splenomegaly , or palpable masses. No guarding. Bowel sounds present. MUSCULOSKELETAL: Extremities without clubbing, cyanosis, or edema. No joint tenderness or effusion noted. No calf tenderness. No mottling or clubbing. STATUS LOCALIS: RUE with hand mild edema and residual erythema, dressing i place with packing with serosang drainage LYMPHATICS: No palpable cervical or supraclavicular adenopathy. NEUROLOGICAL: Awake and alert. Motor and sensory grossly within normal limits. Follows commands. Speech normal Moves all extremities. PSYCHIATRIC: No obvious anxiety/depression. no apparent hallucinations or other psychotic thought process. Laboratory Laboratory Tests Test 12/19/16 04:31 Creatinine 0.93 Estimat Glomerular Filtration 94 Rate Date/Time Procedure Status Source Growth 12/18/16 10:55 Gram Stain - Final Resulted Abscess Hand 12/18/16 10:55 Wound Culture - Preliminary Resulted S. Aureus Mrsa 12/16/16 16:55 Aerobic Blood Culture - Preliminary Resulted Blood Peripheral NO GROWTH IN 3 DAYS 12/16/16 16:55 Anaerobic Blood Culture - Preliminary Resulted Blood Peripheral NO GROWTH IN 3 DAYS Result Diagram: 12/17/16 0532 12/19/16 0431 Imaging Last Impressions Finger X-Ray 12/16/16 1629 Signed Impressions: Service Date/Time: Friday, December 16, 2016 16:51 - CONCLUSION: Soft tissue swelling without fracture. Thien Jameson MD Assessment and Plan Assessment and Plan R hand infx, MRSA sp I+D x 2 op report reviewed: no joint or bone involvemnt reported cont vancomycin dc cipro fu clx result anticipate eventual transition to oral abx per culture report Grazyna Mccullough MD Dec 19, 2016 19:25
[2016-12-19 20:00] VITALS: BP 130/76; PULSE 55; RESP 20; TEMP 97.5; O2SAT 98
[2016-12-20] VITALS: BP 119/72; PULSE 58; RESP 20; TEMP 98.7; O2SAT 100
[2016-12-20] MEDS: VANCOMYCIN 1,500 MG/NS 500 ML IV SCH ×6 (00:47→23:55)
[2016-12-20] MEDS: ZOLPIDEM TARTRATE 10 MG TAB PO PRN (02:52)
[2016-12-20] MEDS: ACETAMINOPHEN/HYDROcodone 325 MG/7.5 MG TAB PO PRN ×5 (02:52→22:15)
[2016-12-20 08:00] VITALS: BP 114/67; PULSE 58; RESP 20; TEMP 97.3; O2SAT 99
[2016-12-20] MEDS: LACTATED RINGER'S 1000 ML INJ 1,000 ML IV SCH ×5 (08:36→22:14)
[2016-12-20] MEDS: NICOTINE 21 MG/24 HR PATCH TD SCH (08:36)
--- NOTE | 2016-12-20 09:39 | HHI.PR ---
Subjective Remarks resting comfortably with no distress. pain to the right hand is fairly controlled. no fever. Objective Vitals Vital Signs Date Time Temp Pulse Resp B/P Pulse Ox O2 Delivery O2 Flow Rate FiO2 12/20/16 08:00 97.3 58 20 114/67 99 12/20/16 00:00 98.7 58 20 119/72 100 12/19/16 20:00 97.5 55 20 130/76 98 12/19/16 16:00 97.0 55 19 111/63 96 12/19/16 12:00 97.2 53 19 105/59 96 12/19/16 09:41 16 I/O 12/19/16 12/19/16 12/19/16 12/20/16 12/20/16 12/20/16 07:00 15:00 23:00 07:00 15:00 23:00 Intake Total 2583 ml 960 ml 480 ml 320 ml 120 ml Output Total 800 ml Balance 2583 ml 160 ml 480 ml 320 ml 120 ml Intake Oral 480 ml 960 ml 480 ml 320 ml 120 ml IV Total 2103 ml Output Urine Total 800 ml # Voids 3 2 2 # Bowel Movements 0 1 0 0 Result Diagram: 12/17/16 0532 12/19/16 0431 Imaging Last Impressions Finger X-Ray 12/16/16 1629 Signed Impressions: Service Date/Time: Friday, December 16, 2016 16:51 - CONCLUSION: Soft tissue swelling without fracture. Thien Jameson MD Objective Remarks GENERAL: This is a well-nourished, well-developed patient, in no apparent distress. CARDIOVASCULAR: Regular rate and irregular rhythm without murmurs, gallops, or rubs. RESPIRATORY: Clear to auscultation. Breath sounds equal bilaterally. No wheezes , rales, or rhonchi. GASTROINTESTINAL: Abdomen soft, non-tender, nondistended. Normal, active bowel sounds MUSCULOSKELETAL: right hand is covered with clean dressing. NEURO: Alert & Oriented x4 to person, place, time, situation. Moves all ext x4 Procedures I/D of the right hand/ small finger Medications and IVs Current Medications Sodium Chloride 1,000 ml @ 125 mls/hr Q8H IV Last administered on 12/16/16t 16 :53; Start 12/16/16 at 16:30; Stop 12/16/16 at 17:44; Status DC Vancomycin HCl/ Sodium Chloride (Vancomycin Inj/ NS 250 ml Inj) 250 ml @ 250 mls/hr ONCE ONCE IV Last administered on 12/16/16 16:53; Start 12/16/16 at 16 :30; Stop 12/16/16 at 17:29; Status DC Morphine Sulfate (Morphine Inj) 2 mg ONCE ONCE IV PUSH Last administered on 16:55; Start 12/16/16 at 16:45; Stop 12/16/16 at 16:46; Status DC Ondansetron HCl (Zofran Inj) 4 mg ONCE ONCE IV PUSH Last administered on 16:55; Start 12/16/16 at 16:45; Stop 12/16/16 at 16:46; Status DC Morphine Sulfate (Morphine Inj) 4 mg Q3H PRN IV BREAKTHROUGH PAIN Last administered on 12/18/16 10:51; Start 12/16/16 at 17:30; Stop 12/18/16 at 12:28 ; Status DC Acetaminophen/ Hydrocodone Bitart (Sylvester 7.5-325 Mg) 1 tab Q4H PRN PO PAIN SCALE 6 TO 10 Last administered on 12/20/16 08:35; Start 12/16/16 at 17:30 Acetaminophen/ Hydrocodone Bitart (Sylvester 5-325 Mg) 1 tab Q4H PRN PO PAIN SCALE 3 TO 5; Start 12/16/16 at 17:30 Ondansetron HCl (Zofran Inj) 4 mg Q6H PRN IVP NAUSEA OR VOMITING; Start at 17:30 Acetaminophen 650 mg 650 mg Q4H PRN PO TEMP > 100.4; Start 12/16/16 at 17:30 Sodium Chloride 1,000 ml @ 75 mls/hr [id number] IV Last administered on 18:14; Start 12/16/16 at 17:18; Stop 12/16/16 at 19:15; Status DC Lactated Ringer's (Lr 1000 ml Inj) 1,000 ml @ 250 mls/hr Q4H IV Last administered on 12/20/16 08:36; Start 12/16/16 at 19:00 Lidocaine HCl (Xylocaine 2% Inj) 20 ml ONCE STAT INFIL Last administered on 21:21; Start 12/16/16 at 21:21; Stop 12/16/16 at 21:29; Status DC Morphine Sulfate (Morphine Inj) 5 mg ONCE ONCE IV PUSH Last administered on 22:03; Start 12/16/16 at 21:45; Stop 12/16/16 at 21:46; Status DC Morphine Sulfate 4 mg 4 mg ONCE ONCE IV PUSH Last administered on 12/17/16 08 :59; Start 12/17/16 at 08:00; Stop 12/17/16 at 08:01; Status DC Pharmacy Profile Note 0 ml @ 0 mls/hr UNSCH OTHER ; Start 12/16/16 at 23:00 Ciprofloxacin/ Dextrose 200 ml @ 200 mls/hr Q12H IV Last administered on 10:50; Start 12/16/16 at 23:00; Stop 12/19/16 at 19:22; Status DC Vancomycin HCl/ Sodium Chloride (Vancomycin Inj/ NS 500 ml Inj) 515 ml @ 257.5 mls/ hr Q12H IV Last administered on 12/20/16 00:47; Start 12/17/16 at 00:00 Miscellaneous Information SPECIFIC LAB TO BE JENNIFER... ONCE ONCE XX Last administered on 12/18/16 11:45; Start 12/18/16 at 11:45; Stop 12/18/16 at 11:46 ; Status DC Nicotine (Habitrol 21 Mg Patch.24 Hr) 1 patch DAILY TD Last administered on 09:12; Start 12/17/16 at 09:00 Zolpidem Tartrate (Ambien) 10 mg HS PRN PO INSOMNIA Last administered on 02:52; Start 12/17/16 at 13:45 Lidocaine HCl (Xylocaine 2% Inj) 20 ml ONCE STAT INFIL ; Start 12/18/16 at 10: 35; Stop 12/18/16 at 10:43; Status DC Lidocaine HCl (Xylocaine 1% Inj (50 ml)) 50 ml STK-MED ONCE .ROUTE ; Start 12/18 at 10:43; Stop 12/18/16 at 10:44; Status DC Ibuprofen (Motrin) 800 mg Q12HR PRN PO pain 1-2 Last administered on 12/19/16 09:12; Start 12/18/16 at 11:30 Hydromorphone HCl (Dilaudid Pf Inj) 1 mg Q4H PRN IV PUSH breakthrough pain; Start 12/18/16 at 12:30; Stop 12/18/16 at 12:30; Status DC Hydromorphone HCl (Dilaudid Pf Inj) 1 mg Q3H PRN IV PUSH breakthrough pain Last administered on 12/19/16 09:11; Start 12/18/16 at 12:30; Stop 12/19/16 at 12:16; Status DC Hydromorphone HCl (Dilaudid Pf Inj) 0.5 mg Q3H PRN IV PUSH breakthrough pain Last administered on 12/19/16 13:18; Start 12/19/16 at 12:30; Stop 12/19/16 at 18:31; Status DC A/P Assessment and Plan A/P RIGHT hand MRSA cellulitis/abscess: failed outpatient therapy with clindamycin and Bactrimpo, Status post I&D by hand surgery Dr. Pena help, Continue iv vancomycin, wound culture grew MRSA. hand surgery following- ID consult appreciated. DVT prophylaxis with ambulation Discharge Planning expected to be discharged early this week when ok with ID and hand surgery. Rosmery Escalera MD Dec 20, 2016 09:39
--- NOTE | 2016-12-20 10:24 | PD.PLAS.PN ---
Subjective Remarks The patient reports better range of motion and less pain. There is no significant pain when it is not elevated. Vital Signs Date Time Temp Pulse Resp B/P Pulse Ox O2 Delivery O2 Flow Rate FiO2 12/20/16 08:00 97.3 58 20 114/67 99 12/20/16 00:00 98.7 58 20 119/72 100 12/19/16 20:00 97.5 55 20 130/76 98 12/19/16 16:00 97.0 55 19 111/63 96 12/19/16 12:00 97.2 53 19 105/59 96 I/O 12/19/16 12/19/16 12/19/16 12/20/16 12/20/16 12/20/16 07:00 15:00 23:00 07:00 15:00 23:00 Intake Total 2583 ml 960 ml 480 ml 320 ml 120 ml Output Total 800 ml Balance 2583 ml 160 ml 480 ml 320 ml 120 ml Intake Oral 480 ml 960 ml 480 ml 320 ml 120 ml IV Total 2103 ml Output Urine Total 800 ml # Voids 3 2 2 # Bowel Movements 0 1 0 0 Date/Time Procedure Status Source Growth 12/18/16 10:55 Gram Stain - Final Complete Abscess Hand 12/18/16 10:55 Wound Culture - Final Complete S. Aureus Mrsa 12/16/16 16:55 Aerobic Blood Culture - Preliminary Resulted Blood Peripheral NO GROWTH IN 3 DAYS 12/16/16 16:55 Anaerobic Blood Culture - Preliminary Resulted Blood Peripheral NO GROWTH IN 3 DAYS Result Diagram: 12/17/16 0532 12/19/16 0431 Exam Findings The wound is clean. There is an excellent granulation base starting. There is no drainage. There is minimal swelling. His range of motion is limited due to discomfort. Impression: (1) Abscess of finger of right hand Comment: Impression: The patient is doing well. There is no evidence of any further abscess. There is no evidence of any significant cellulitis. Plan: The patient is cleared for discharge by hand surgery. He can follow-up with Dr. Pena in his clinic next week. He can be discharged on oral antibiotics. With the nurse present, I discussed wound care on discharge. He is to soak his hand in a dilute solution of Betadine solution and water. He is to do this for 10 minutes. He is to then dry his hand and apply a thin layer of Silvadene and cover with Telfa. He is then to wrap it with a dry sterile dressing. The patient appears to understand and accept the treatment plan. Carrie Sheehan MD Dec 20, 2016 10:24
[2016-12-20 12:00] VITALS: BP 118/70; PULSE 58; RESP 19; TEMP 98.1; O2SAT 98
[2016-12-20] MEDS: SILVER SULFADIAZINE 1% CR 50 GM JAR TOP SCH (12:01)
[2016-12-20] MEDS: POVIDONE IODINE 10% SOLN 118 ML BOTTLE TOP SCH (12:01)
[2016-12-20 16:00] VITALS: BP 115/69; PULSE 66; RESP 19; TEMP 98.1; O2SAT 97
[2016-12-20 22:45] VITALS: BP 114/60; PULSE 54; RESP 20; TEMP 97.4; O2SAT 96
[2016-12-21] MEDS: ZOLPIDEM TARTRATE 10 MG TAB PO PRN
[2016-12-21 00:33] VITALS: BP 123/74; PULSE 58; RESP 22; TEMP 97.3; O2SAT 98
[2016-12-21] MEDS: ACETAMINOPHEN/HYDROcodone 325 MG/7.5 MG TAB PO PRN ×5 (04:30→21:19)
[2016-12-21 08:00] VITALS: BP 122/67; PULSE 52; RESP 19; TEMP 98.4; O2SAT 99
[2016-12-21] MEDS: NICOTINE 21 MG/24 HR PATCH TD SCH (08:51)
[2016-12-21] MEDS: LACTATED RINGER'S 1000 ML INJ 1,000 ML IV SCH ×5 (08:51→21:19)
[2016-12-21] MEDS: POVIDONE IODINE 10% SOLN 118 ML BOTTLE TOP SCH (08:52)
[2016-12-21] MEDS: SILVER SULFADIAZINE 1% CR 50 GM JAR TOP SCH (08:52)
--- NOTE | 2016-12-21 09:01 | HHI.PR ---
Subjective Remarks resting comfortably with no distress. no fever. pain is controlled. d/w the RN and no acute issues over night. Objective Vitals Vital Signs Date Time Temp Pulse Resp B/P Pulse Ox O2 Delivery O2 Flow Rate FiO2 12/21/16 08:00 98.4 52 19 122/67 99 12/21/16 00:33 97.3 58 22 123/74 98 12/20/16 22:45 97.4 54 20 114/60 96 12/20/16 16:00 98.1 66 19 115/69 97 12/20/16 15:20 20 12/20/16 12:00 98.1 58 19 118/70 98 I/O 12/20/16 12/20/16 12/20/16 12/21/16 12/21/16 12/21/16 07:00 15:00 23:00 07:00 15:00 23:00 Intake Total 320 ml 5796 ml 2701 ml 120 ml Output Total 900 ml Balance 320 ml 4896 ml 2701 ml 120 ml Intake Oral 320 ml 1120 ml 750 ml 120 ml IV Total 4676 ml 1951 ml Output Urine Total 900 ml # Voids 2 5 # Bowel Movements 0 0 2 Result Diagram: 12/17/16 0532 12/21/16 0534 Imaging Last Impressions Finger X-Ray 12/16/16 1629 Signed Impressions: Service Date/Time: Friday, December 16, 2016 16:51 - CONCLUSION: Soft tissue swelling without fracture. Thien Jameson MD Objective Remarks GENERAL: This is a well-nourished, well-developed patient, in no apparent distress. CARDIOVASCULAR: Regular rate and irregular rhythm without murmurs, gallops, or rubs. RESPIRATORY: Clear to auscultation. Breath sounds equal bilaterally. No wheezes , rales, or rhonchi. GASTROINTESTINAL: Abdomen soft, non-tender, nondistended. Normal, active bowel sounds MUSCULOSKELETAL: right hand is covered with clean dressing. NEURO: Alert & Oriented x4 to person, place, time, situation. Moves all ext x4 Procedures I/D of the right hand/ small finger Medications and IVs Current Medications Sodium Chloride 1,000 ml @ 125 mls/hr Q8H IV Last administered on 12/16/16t 16 :53; Start 12/16/16 at 16:30; Stop 12/16/16 at 17:44; Status DC Vancomycin HCl/ Sodium Chloride (Vancomycin Inj/ NS 250 ml Inj) 250 ml @ 250 mls/hr ONCE ONCE IV Last administered on 12/16/16 16:53; Start 12/16/16 at 16 :30; Stop 12/16/16 at 17:29; Status DC Morphine Sulfate (Morphine Inj) 2 mg ONCE ONCE IV PUSH Last administered on 16:55; Start 12/16/16 at 16:45; Stop 12/16/16 at 16:46; Status DC Ondansetron HCl (Zofran Inj) 4 mg ONCE ONCE IV PUSH Last administered on 16:55; Start 12/16/16 at 16:45; Stop 12/16/16 at 16:46; Status DC Morphine Sulfate (Morphine Inj) 4 mg Q3H PRN IV BREAKTHROUGH PAIN Last administered on 12/18/16 10:51; Start 12/16/16 at 17:30; Stop 12/18/16 at 12:28 ; Status DC Acetaminophen/ Hydrocodone Bitart ([place] 7.5-325 Mg) 1 tab Q4H PRN PO PAIN SCALE 6 TO 10 Last administered on 12/21/16 04:30; Start 12/16/16 at 17:30 Acetaminophen/ Hydrocodone Bitart ([place] 5-325 Mg) 1 tab Q4H PRN PO PAIN SCALE 3 TO 5; Start 12/16/16 at 17:30 Ondansetron HCl (Zofran Inj) 4 mg Q6H PRN IVP NAUSEA OR VOMITING; Start at 17:30 Acetaminophen 650 mg 650 mg Q4H PRN PO TEMP > 100.4; Start 12/16/16 at 17:30 Sodium Chloride 1,000 ml @ 75 mls/hr [id number] IV Last administered on 18:14; Start 12/16/16 at 17:18; Stop 12/16/16 at 19:15; Status DC Lactated Ringer's (Lr 1000 ml Inj) 1,000 ml @ 250 mls/hr Q4H IV Last administered on 12/20/16 22:14; Start 12/16/16 at 19:00 Lidocaine HCl (Xylocaine 2% Inj) 20 ml ONCE STAT INFIL Last administered on 21:21; Start 12/16/16 at 21:21; Stop 12/16/16 at 21:29; Status DC Morphine Sulfate (Morphine Inj) 5 mg ONCE ONCE IV PUSH Last administered on 22:03; Start 12/16/16 at 21:45; Stop 12/16/16 at 21:46; Status DC Morphine Sulfate 4 mg 4 mg ONCE ONCE IV PUSH Last administered on 12/17/16 08 :59; Start 12/17/16 at 08:00; Stop 12/17/16 at 08:01; Status DC Pharmacy Profile Note 0 ml @ 0 mls/hr UNSCH OTHER ; Start 12/16/16 at 23:00 Ciprofloxacin/ Dextrose 200 ml @ 200 mls/hr Q12H IV Last administered on 10:50; Start 12/16/16 at 23:00; Stop 12/19/16 at 19:22; Status DC Vancomycin HCl/ Sodium Chloride (Vancomycin Inj/ NS 500 ml Inj) 515 ml @ 257.5 mls/ hr Q12H IV Last administered on 12/20/16 23:55; Start 12/17/16 at 00:00 Miscellaneous Information SPECIFIC LAB TO BE JENNIFER... ONCE ONCE XX Last administered on 12/18/16 11:45; Start 12/18/16 at 11:45; Stop 12/18/16 at 11:46 ; Status DC Nicotine (Habitrol 21 Mg Patch.24 Hr) 1 patch DAILY TD Last administered on 09:12; Start 12/17/16 at 09:00 Zolpidem Tartrate (Ambien) 10 mg HS PRN PO INSOMNIA Last administered on 00:00; Start 12/17/16 at 13:45 Lidocaine HCl (Xylocaine 2% Inj) 20 ml ONCE STAT INFIL ; Start 12/18/16 at 10: 35; Stop 12/18/16 at 10:43; Status DC Lidocaine HCl (Xylocaine 1% Inj (50 ml)) 50 ml STK-MED ONCE .ROUTE ; Start 12/18 at 10:43; Stop 12/18/16 at 10:44; Status DC Ibuprofen (Motrin) 800 mg Q12HR PRN PO pain 1-2 Last administered on 12/19/16 09:12; Start 12/18/16 at 11:30 Hydromorphone HCl (Dilaudid Pf Inj) 1 mg Q4H PRN IV PUSH breakthrough pain; Start 12/18/16 at 12:30; Stop 12/18/16 at 12:30; Status DC Hydromorphone HCl (Dilaudid Pf Inj) 1 mg Q3H PRN IV PUSH breakthrough pain Last administered on 12/19/16 09:11; Start 12/18/16 at 12:30; Stop 12/19/16 at 12:16; Status DC Hydromorphone HCl (Dilaudid Pf Inj) 0.5 mg Q3H PRN IV PUSH breakthrough pain Last administered on 12/19/16 13:18; Start 12/19/16 at 12:30; Stop 12/19/16 at 18:31; Status DC Silver Sulfadiazine (Silvadene 1% Cream (50 Gm)) 1 applic DAILY TOP Last administered on 12/20/16 12:01; Start 12/20/16 at 11:00 Povidone Iodine (Betadine 10% Top Soln) 1 applic DAILY TOP Last administered on 12/20/16 12:01; Start 12/20/16 at 10:30 A/P Assessment and Plan A/P RIGHT hand MRSA cellulitis/abscess: failed outpatient therapy with clindamycin and Bactrim Status post I&D by hand surgery . Continue IV vancomycin, wound culture grew MRSA. hand surgery follow-up appreciated and cleared for discharge- DVT prophylaxis with ambulation Discharge Planning expected to be discharged early this week when ok with ID. Rosmery Escalera MD Dec 21, 2016 09:01
[2016-12-21] MEDS ORDERED: HYDR-3580 PO (09:03)
--- NOTE | 2016-12-21 09:03 | HHI.DCPOC ---
Discharge Care Plan Diagnosis: (1) Cellulitis of right hand Your Health Problems Are: Inflammation Swelling Goals to Promote Your Health * To prevent worsening of your condition and complications * To maintain your health at the optimal level Directions to Meet Your Goals Take your medications as prescribed Follow your dietary instruction Follow activity as directed Keep your appointments as scheduled Take your immunizations and boosters as scheduled If your symptoms worsen call your PCP, if no PCP go to Urgent Care Center or Emergency Room Smoking is Dangerous to Your Health. Avoid second hand smoke Call the 24-hour hour crisis hotline for domestic abuse at Rosmery Escalera MD Dec 21, 2016 09:03
[2016-12-21] MEDS: VANCOMYCIN 1,500 MG/NS 500 ML IV SCH ×4 (11:43→23:43)
[2016-12-21 12:00] VITALS: BP 102/62; PULSE 61; RESP 19; TEMP 97.3; O2SAT 99
[2016-12-21 16:00] VITALS: BP 117/66; PULSE 66; RESP 19; TEMP 98.3; O2SAT 97
[2016-12-21 20:00] VITALS: BP 130/68; PULSE 71; RESP 17; TEMP 97.3; O2SAT 97
[2016-12-22] VITALS: BP 114/60; PULSE 50; RESP 17; TEMP 97.3; O2SAT 98
[2016-12-22] MEDS: ACETAMINOPHEN/HYDROcodone 325 MG/7.5 MG TAB PO PRN ×2 (02:18→11:27)
[2016-12-22] MEDS: LACTATED RINGER'S 1000 ML INJ 1,000 ML IV SCH (02:32)
[2016-12-22 08:00] VITALS: BP 111/69; PULSE 52; RESP 18; TEMP 96.9; O2SAT 98
--- NOTE | 2016-12-22 09:02 | HHI.PR ---
Subjective Remarks resting comfortably with no distress. pain is fairly controlled. no fever. wants to go home today. Objective Vitals Vital Signs Date Time Temp Pulse Resp B/P Pulse Ox O2 Delivery O2 Flow Rate FiO2 12/22/16 08:00 96.9 52 18 111/69 98 12/22/16 00:00 97.3 50 17 114/60 98 12/21/16 20:00 97.3 71 17 130/68 97 12/21/16 18:07 20 12/21/16 16:00 98.3 66 19 117/66 97 12/21/16 12:00 97.3 61 19 102/62 99 I/O 12/21/16 12/21/16 12/21/16 12/22/16 12/22/16 12/22/16 07:00 15:00 23:00 07:00 15:00 23:00 Intake Total 4704 ml 1480 ml 990 ml Output Total 900 ml Balance 3804 ml 1480 ml 990 ml Intake Oral 1200 ml 480 ml 240 ml IV Total 3504 ml 1000 ml 750 ml Output Urine Total 900 ml # Voids 2 2 # Bowel Movements 1 Result Diagram: 12/21/16 0534 Imaging Last Impressions Finger X-Ray 12/16/16 1629 Signed Impressions: Service Date/Time: Friday, December 16, 2016 16:51 - CONCLUSION: Soft tissue swelling without fracture. Thien Jameson MD Objective Remarks GENERAL: This is a well-nourished, well-developed patient, in no apparent distress. CARDIOVASCULAR: Regular rate and irregular rhythm without murmurs, gallops, or rubs. RESPIRATORY: Clear to auscultation. Breath sounds equal bilaterally. No wheezes , rales, or rhonchi. GASTROINTESTINAL: Abdomen soft, non-tender, nondistended. Normal, active bowel sounds MUSCULOSKELETAL: right hand is covered with clean dressing. NEURO: Alert & Oriented x4 to person, place, time, situation. Moves all ext x4 Procedures I/D of the right hand/ small finger Medications and IVs Current Medications Sodium Chloride 1,000 ml @ 125 mls/hr Q8H IV Last administered on 12/16/16t 16 :53; Start 12/16/16 at 16:30; Stop 12/16/16 at 17:44; Status DC Vancomycin HCl/ Sodium Chloride (Vancomycin Inj/ NS 250 ml Inj) 250 ml @ 250 mls/hr ONCE ONCE IV Last administered on 12/16/16 16:53; Start 12/16/16 at 16 :30; Stop 12/16/16 at 17:29; Status DC Morphine Sulfate (Morphine Inj) 2 mg ONCE ONCE IV PUSH Last administered on 16:55; Start 12/16/16 at 16:45; Stop 12/16/16 at 16:46; Status DC Ondansetron HCl (Zofran Inj) 4 mg ONCE ONCE IV PUSH Last administered on 16:55; Start 12/16/16 at 16:45; Stop 12/16/16 at 16:46; Status DC Morphine Sulfate (Morphine Inj) 4 mg Q3H PRN IV BREAKTHROUGH PAIN Last administered on 12/18/16 10:51; Start 12/16/16 at 17:30; Stop 12/18/16 at 12:28 ; Status DC Acetaminophen/ Hydrocodone Bitart ([place] 7.5-325 Mg) 1 tab Q4H PRN PO PAIN SCALE 6 TO 10 Last administered on 12/22/16 02:18; Start 12/16/16 at 17:30 Acetaminophen/ Hydrocodone Bitart ([place] 5-325 Mg) 1 tab Q4H PRN PO PAIN SCALE 3 TO 5; Start 12/16/16 at 17:30 Ondansetron HCl (Zofran Inj) 4 mg Q6H PRN IVP NAUSEA OR VOMITING; Start at 17:30 Acetaminophen 650 mg 650 mg Q4H PRN PO TEMP > 100.4; Start 12/16/16 at 17:30 Sodium Chloride 1,000 ml @ 75 mls/hr [id number] IV Last administered on 18:14; Start 12/16/16 at 17:18; Stop 12/16/16 at 19:15; Status DC Lactated Ringer's (Lr 1000 ml Inj) 1,000 ml @ 250 mls/hr Q4H IV Last administered on 12/21/16 21:19; Start 12/16/16 at 19:00 Lidocaine HCl (Xylocaine 2% Inj) 20 ml ONCE STAT INFIL Last administered on 21:21; Start 12/16/16 at 21:21; Stop 12/16/16 at 21:29; Status DC Morphine Sulfate (Morphine Inj) 5 mg ONCE ONCE IV PUSH Last administered on 22:03; Start 12/16/16 at 21:45; Stop 12/16/16 at 21:46; Status DC Morphine Sulfate 4 mg 4 mg ONCE ONCE IV PUSH Last administered on 12/17/16 08 :59; Start 12/17/16 at 08:00; Stop 12/17/16 at 08:01; Status DC Pharmacy Profile Note 0 ml @ 0 mls/hr UNSCH OTHER ; Start 12/16/16 at 23:00 Ciprofloxacin/ Dextrose 200 ml @ 200 mls/hr Q12H IV Last administered on 10:50; Start 12/16/16 at 23:00; Stop 12/19/16 at 19:22; Status DC Vancomycin HCl/ Sodium Chloride (Vancomycin Inj/ NS 500 ml Inj) 515 ml @ 257.5 mls/ hr Q12H IV Last administered on 12/21/16 23:43; Start 12/17/16 at 00:00 Miscellaneous Information SPECIFIC LAB TO BE ... ONCE ONCE XX Last administered on 12/18/16 11:45; Start 12/18/16 at 11:45; Stop 12/18/16 at 11:46 ; Status DC Nicotine (Habitrol 21 Mg Patch.24 Hr) 1 patch DAILY TD Last administered on 09:12; Start 12/17/16 at 09:00 Zolpidem Tartrate (Ambien) 10 mg HS PRN PO INSOMNIA Last administered on 00:00; Start 12/17/16 at 13:45 Lidocaine HCl (Xylocaine 2% Inj) 20 ml ONCE STAT INFIL ; Start 12/18/16 at 10: 35; Stop 12/18/16 at 10:43; Status DC Lidocaine HCl (Xylocaine 1% Inj (50 ml)) 50 ml STK-MED ONCE .ROUTE ; Start 12/18 at 10:43; Stop 12/18/16 at 10:44; Status DC Ibuprofen (Motrin) 800 mg Q12HR PRN PO pain 1-2 Last administered on 12/19/16 09:12; Start 12/18/16 at 11:30 Hydromorphone HCl (Dilaudid Pf Inj) 1 mg Q4H PRN IV PUSH breakthrough pain; Start 12/18/16 at 12:30; Stop 12/18/16 at 12:30; Status DC Hydromorphone HCl (Dilaudid Pf Inj) 1 mg Q3H PRN IV PUSH breakthrough pain Last administered on 12/19/16 09:11; Start 12/18/16 at 12:30; Stop 12/19/16 at 12:16; Status DC Hydromorphone HCl (Dilaudid Pf Inj) 0.5 mg Q3H PRN IV PUSH breakthrough pain Last administered on 12/19/16 13:18; Start 12/19/16 at 12:30; Stop 12/19/16 at 18:31; Status DC Silver Sulfadiazine (Silvadene 1% Cream (50 Gm)) 1 applic DAILY TOP Last administered on 12/21/16 08:52; Start 12/20/16 at 11:00 Povidone Iodine (Betadine 10% Top Soln) 1 applic DAILY TOP Last administered on 12/21/16 08:52; Start 12/20/16 at 10:30 A/P Assessment and Plan A/P RIGHT hand MRSA cellulitis/abscess: failed outpatient therapy with clindamycin and Bactrim Status post I&D by hand surgery . treated with IV vancomycin, wound culture grew MRSA. hand surgery follow-up appreciated and cleared for discharge- d/w ; will switch to po Doxycycline. DVT prophylaxis with ambulation Discharge Planning dc home today. f/u; pcp and hand surgery. see med list. d/w the patient and . Rosmery Escalera MD Dec 22, 2016 09:02
[2016-12-22] MEDS ORDERED: DOXY1CAP91 PO (09:04)
--- NOTE | 2016-12-22 09:05 | HHI.DS ---
Discharge Summary Admission Date Dec 16, 2016 at 17:21 Discharge Date: Dec 22, 2016 Admitting Diagnosis right fifth finger abscess and cellulitis (1) Cellulitis of right hand ICD Code: L03.113 Diagnosis: Principal (2) Abscess of finger of right hand ICD Code: L02.511 Diagnosis: Principal Procedures I/D of the right hand/ small finger Brief History - From Admission 30 years old male who climbed trees who came to ED complaining of worsening right hand and arm erythema and swelling and pain in the right fifth finger, patient went to [facility] in [facility] and was given prescription for clindamycin and Bactrim DS but it didn't help. The swelling continued to increase along with the tenderness patient start feeling lymph node in his right armpit and in his antecubital area. Patient not sure if he got insect right in his hand, but he reported being poked with pineapple leafs that is hard in the antecubital area. Patient reported extreme pain 12 out of 10 in his words improved to 9 out of 10 after his given pain medication in ED, he denied fever or chills chest pain or short of breath abdominal pain diarrhea constipation. He is up-to-date on TD booster CBC/BMP: 12/21/16 0534 Imaging Last Impressions Finger X-Ray 12/16/16 1629 Signed Impressions: Service Date/Time: Friday, December 16, 2016 16:51 - CONCLUSION: Soft tissue swelling without fracture. Thien Jameson MD PE at Discharge GENERAL: This is a well-nourished, well-developed patient, in no apparent distress. CARDIOVASCULAR: Regular rate and irregular rhythm without murmurs, gallops, or rubs. RESPIRATORY: Clear to auscultation. Breath sounds equal bilaterally. No wheezes , rales, or rhonchi. GASTROINTESTINAL: Abdomen soft, non-tender, nondistended. Normal, active bowel sounds MUSCULOSKELETAL: right hand is covered with clean dressing. NEURO: Alert & Oriented x4 to person, place, time, situation. Moves all ext x4 Hospital Course RIGHT hand MRSA cellulitis/abscess: failed outpatient therapy with clindamycin and Bactrim Status post I&D by hand surgery . treated with IV vancomycin, wound culture grew MRSA. hand surgery follow-up appreciated and cleared for discharge- d/w ; will switch to po Doxycycline. DVT prophylaxis with ambulation Pt Condition on Discharge: Good Discharge Disposition: Discharge Home Discharge Time: <= 30 minutes Discharge Instructions DIET: Follow Instructions for: As Tolerated, No Restrictions Activities you can perform: Regular-No Restrictions Follow up Referrals: Hand Surgery PCP Follow-up New Medications: Doxycycline (Monohydrate) (Doxycycline) 100 Mg Cap 100 MG PO BID infection Days 10 Ref 0 TAB Hydrocodone-Acetaminophen (Hydrocodone-Acetaminophen) 7.5-325 mg Tab 1 TAB PO Q6HR PRN pain #12 Ref 0 TAB Discontinued Medications: Clindamycin (Cleocin) 150 Mg Cap 300 MG PO BID Infection Ref 0 CAP Naproxen (Naproxen) 500 Mg Tab 500 MG PO BID Pain Management #60 Ref 0 TAB Sulfamethoxazole-Trimethoprim (Bactrim DS) 800-160 Mg Tab 1 TAB PO BID Infection Ref 0 TAB Rosmery Escalera MD Dec 22, 2016 09:05
== END 2016-12-22 11:43 | disposition home or self-care (01) | DRG 603 ==
LOC: NEPA 15:31 → NEDA 17:21 → N07B 21:17
PROVIDERS: ADMIT Internal Medicine; ATTEND Internal Medicine
PROC: 0H9FXZX Drainage of Right Hand Skin, External Approach, Diagnostic (ICD-10-PCS; principal; 2016-12-16)
PROC: 0HDFXZZ Extraction of Right Hand Skin, External Approach (ICD-10-PCS; 2016-12-18)
DX: L03.113 Cellulitis of right upper limb (principal); L02.511 Cutaneous abscess of right hand; B95.62 Methicillin resistant Staphylococcus aureus infection as the cause of diseases classified elsewhere; F17.210 Nicotine dependence, cigarettes, uncomplicated
CPT/HCPCS: 73140; 80048; 80202; 82565; 85025; 86403; 87040; 87070; 87147; 87186; 87205; 96365; 96375; J0744; J1170; J2270; J2405; J3370; J7030; J7040; J7050; J7120